=== PATIENT | male | born 1955 | race Caucasian/White ===

== ENCOUNTER 2022-06-09 00:14 | Day surgery (SDC) | payer MEDICARE, OTHER, SELFPAY ==
[2022-05-26 12:33] VITALS: BMI 32.1
[2022-06-09 08:37] VITALS: BP 142/80; PULSE 61; RESP 18; TEMP 36.4; O2SAT 96
[2022-06-09] MEDS: LACTATED RINGERS 1,000 ML 150 ML IV CONT (08:45)
--- NOTE | 2022-06-09 09:10 | P.PNAN_ITS ---
Anes - Initial Pre Proc Eval Procedure: Operation Date: 06/09/22 10:00 Proposed Procedures p Screening Colonoscopy - Akbar Leon MD Date/Time: 06/09/22 09:10 Surgeon: Akbar Leon MD Pre Op Diagnosis: hx colon polyps Patient Data Age: 67 Gender: M Height: 1.88 m Weight: 119.9 kg Last Vital Signs Temp 97.5 F L 06/09/22 08:37 Pulse 61 06/09/22 08:37 Resp 18 06/09/22 08:37 BP 142/80 H 06/09/22 08:37 Pulse Ox 96 06/09/22 08:37 O2 Del Method Room Air 06/09/22 08:37 Allergies Allergy/AdvReac Type Severity Reaction Status Date / Time No Known Allergies Allergy Verified 06/09/22 08:35 Home Medications Medication Instructions Recorded Confirmed Type aspirin 81 mg tablet 81 mg PO DAILY 05/26/22 05/26/22 History hydrochlorothiazide 12.5 mg tablet 12.5 mg PO DAILY 05/26/22 05/26/22 History lisinopril 20 mg tablet 20 mg PO DAILY 05/26/22 05/26/22 History rosuvastatin 40 mg tablet 20 mg PO DAILY 05/26/22 05/26/22 History Patient hx anesthesia problems: none Family hx anesthesia problems: none Results Review: All pre-operative results and documents have been reviewed as part of the pre-op erative evaluation. FOR[facility], [facility] Social History Social History Years smoked: 30 Smoking status: Former smoker Tobacco type: cigarettes Substance use type: does not use Living arrangements: alone Anes - Eval Final PreProcedure Day of Procedure 06/09/22 09:10 Patient weight: obese Heart: regular rate and rhythm Lungs: clear to auscultation Airway: Mallampati scale class II Neurological: alert and oriented Last oral intake: >/= 8 hours ASA classification: III Emergent: no Anesthetic plan: proceed Anesthesia type and monitoring: general GIVS and standard monitoring Results Review: All pre-operative results and documents have been reviewed as part of the pre- operative evaluation. Informed Consent: The patient's anesthetic plan and its attendant risks and benefits were discussed with the patient/family/POA. Questions were solicited and answers provided to the satisfaction of the patient/family/POA.
--- NOTE | 2022-06-09 09:25 | PM.HPGS ---
History of Present Illness History of Present Illness Consent: Risks, benefits, and alternatives have been discussed and questions answered. Patient agrees to proceed with procedure. Chief complaint: hx colon polyps Narrative: Esau Pendleton is a 67 year old male referred for colon cancer screening. He had polyps removed about 5 years ago. Review of Systems Review of Systems: All systems reviewed & are unremarkable except as noted in HPI and below PMFSH Social History Social History Years smoked: 30 Smoking status: Former smoker Tobacco type: cigarettes Substance use type: does not use Living arrangements: alone Meds Home Medications and Allergies Home Medications Medication Instructions Recorded Confirmed Type aspirin 81 mg tablet 81 mg PO DAILY 05/26/22 05/26/22 History hydrochlorothiazide 12.5 mg tablet 12.5 mg PO DAILY 05/26/22 05/26/22 History lisinopril 20 mg tablet 20 mg PO DAILY 05/26/22 05/26/22 History rosuvastatin 40 mg tablet 20 mg PO DAILY 05/26/22 05/26/22 History Allergies Allergy/AdvReac Type Severity Reaction Status Date / Time No Known Allergies Allergy Verified 06/09/22 08:35 Vital Signs Vital Signs - 24 hr 06/09/22 08:37 Temperature 36.4 C L Pulse Rate 61 Respiratory Rate 18 Blood Pressure 142/80 H Pulse Oximetry 96 Oxygen Delivery Room Air Exam Const: General: alert Orientation/consciousness: patient oriented x3 Resp: Auscultation: clear to auscultation bilaterally Cardio: Rhythm: regular rhythm GI: GI Palp: Yes Soft to palpation and No Tenderness to palpation present (GI) Neuro: General: patient oriented x3 Assessment and Plan Assessment and plan (1) Colon cancer screening: Code(s): Z12.11 - Encounter for screening for malignant neoplasm of colon Status: Acute
[2022-06-09 10:03] VITALS: BP 121/64; PULSE 64; RESP 13; O2SAT 97
[2022-06-09 10:13] VITALS: BP 127/79; PULSE 60; RESP 18; O2SAT 97
[2022-06-09 10:23] VITALS: BP 139/84; PULSE 53; RESP 16; O2SAT 97
== END 2022-06-09 10:36 | disposition home or self-care (01) ==
PROVIDERS: PCP Internal Medicine; Visit Provider Internal Medicine Gastroenterology
PROC: 0DJD8ZZ Inspection of Lower Intestinal Tract, Via Natural or Artificial Opening Endoscopic (ICD-10-PCS; CPT 45378; principal; 2022-06-09 10:00)
DX: Z12.11 Encounter for screening for malignant neoplasm of colon (principal); K57.30 Diverticulosis of large intestine without perforation or abscess without bleeding; D12.5 Benign neoplasm of sigmoid colon; Z79.82 Long term (current) use of aspirin; Z87.891 Personal history of nicotine dependence; E66.9 Obesity, unspecified; Z68.33 Body mass index [BMI] 33.0-33.9, adult
CPT/HCPCS: 45380; 88305; J2704; J7120

== ENCOUNTER 2024-03-14 10:52 | Outpatient (RCR) | payer MEDICARE, OTHER, SELFPAY ==
--- NOTE | 2024-03-14 11:54 | PTOPEVAL1 ---
Assessment and note entered by Mouna Restrepo, PT, DPT Evaluation Information Assessment Status Evaluation Diagnosis L hip trochanteric bursitis Subjective Information Pt states about 3 months ago he was golfing and felt a pain in his hip. Pt states he has a slight tear in his L hip and also that his L leg is slightly shorter than his R. He was getting some low back pain secondary to this, he was given a heel lift and this has helped with the back pain. He states he only gets hip pain when rolling over in bed and when laying on the L side. Reported Pain Level Pain Score 0: Self Report Assessment PT Clinical Summary Pt presents to therapy today for his initial evaluation with a diagnosis of L hip pain. Today he demonstrates functional ROM and strength with limitations in piriformis, hamstring, and hip flexor muscle flexibility. He has mild hip weakness. He ambulates without compensation and reports no functional limitations. Pt plans to continue HEP and will follow up in about a month if his symptoms do not improve. Plan of Care Interventions Electrical Stimulation,Gait Training,Hot Pack/Cold Pack,Manual Therapy,Neuro Re-education,Patient/ Caregiver Educati,Therapeutic Activities, Therapeutic Exercise PT Services Indicated Yes Treatment Frequency and follow up in a month if needed Duration These treatments will address the objective and functional deficits as defined above. The patient will be advanced safely and appropriately in order for the patient to progress towards his/her prior level of function. Additional exercises will be introduced and as well as a comprehensive home exercise program upon discharge, if needed, ?to ensure carryover of functional gains achieved in the clinic. This treatment plan has been reviewed and agreement upon by the patient.
--- NOTE | 2024-05-24 11:38 | PTOPDC ---
Assessment and note entered by Mouna Restrepo, PT, DPT Evaluation Information Assessment Status Discharge - Pt Not Present Diagnosis L hip trochanteric bursitis Subjective Information Called and spoke with pt. States he has been doing his HEP and is feeling back to normal. Assessment PT Clinical Summary Pt to be d/c'ed at this time with instructions to continue HEP and to follow up with MD if needed.
== END 2024-05-24 12:38 | disposition home or self-care (01) ==
LOC: ANHGOSHPT 10:52
PROVIDERS: PCP Internal Medicine; Visit Provider Orthopaedic Surgery
DX: M70.62 Trochanteric bursitis, left hip (principal)
CPT/HCPCS: 97110; 97161